=== PATIENT | male | born 1950 | race Caucasian/White ===

== ENCOUNTER → 2018-06-22 | Outpatient (CLI) | payer BC ==
[~2018-06-22] MED LIST: AMLO10TA4 PO; GABA300C10 PO; SERT50TA PO
[2018-06-22 14:47] LABS: BASOPHILS # (AUTO) 0.03 x10^3/uL (0-0.1); BASOPHILS % (AUTO) 0 % (0-1); EOSINOPHILS # (AUTO) 0.27 x10^3/uL (0-0.4); EOSINOPHILS % (AUTO) 3 % (1-7); LYMPHOCYTES # (AUTO) 2.44 x10^3/uL (1-3.4); LYMPHOCYTES % (AUTO) 23 % (22-44); MD NO; MEAN CORPUSCULAR HGB CONC 33.5 g/dL (33.2-36.2); MEAN CORPUSCULAR VOLUME 89.6 fL (81-97); MEAN PLATELET VOLUME 8.7 fL (7.4-10.4); MONOCYTES % (AUTO) 6 % (2-9); NEUTROPHILS # (AUTO) 7.42 x10^3/uL (1.8-6.8); NEUTROPHILS % (AUTO) 68 % (42-75); PLATELET COUNT 280 x10^3/uL (130-400); RED CELL DISTRIBUTION WIDTH 13.9 % (9.4-14.8)
[2018-06-22 14:49] LABS: MICROSCOPIC NOT IND
[2018-06-22 14:52] LABS: ALANINE AMINOTRANSFERASE 30 U/L (12-78); ALBUMIN 3.9 g/dL (3.4-5.0); ANION GAP 6 mmol/L (5-15); CALCIUM 8.9 mg/dL (8.5-10.1); CHLORIDE 111 mmol/L (98-107); CREATININE 0.93 mg/dL (0.7-1.3)
[2018-06-22 14:54] LABS: ALKALINE PHOSPHATASE 100 U/L (45-117); BILIRUBIN,TOTAL 0.7 mg/dL (0.2-1.0); TOTAL PROTEIN 8.1 g/dL (6.4-8.2)
[2018-06-22 15:10] LABS: CULTURE INDICATED? NO
[2018-06-22 15:51] LABS: INTERNATIONAL NORMALIZED RATIO 1.05 (0.93-1.1); PROTHROMBIN TIME 10.9 Seconds (9.6-11.5)
== END | disposition home or self-care (01) ==
LOC: STAR 13:28
PROVIDERS: ATTEND Orthopaedic Surgery Orthopaedic Surgery of the Spine
DX: Z01.818 Encounter for other preprocedural examination (principal); M48.02 Spinal stenosis, cervical region
CPT/HCPCS: 36415; 71046; 80053; 81003; 85025; 85610; 85730; 93005

== ENCOUNTER 2018-06-25 09:28 | Inpatient (IN) | payer MEDICARE, BC ==
[~2018-06-25] VITALS: Ht 180.3 cm; Wt 138.6 kg
[2018-06-25] MEDS ORDERED: ACET-1600 PO (10:13)
[2018-06-25] MEDS ORDERED: LACTATED RINGERS 1,000 ML IV SCH (10:17)
[2018-06-25] MEDS ORDERED: MIDAZOLAM 1 MG/ML, 2ML ONE (10:24)
[2018-06-25] MEDS ORDERED: FENTANYL PF 250 MCG/5ML ONE (10:24)
[2018-06-25] MEDS ORDERED: PROPOFOL 100 ML ONE (10:25)
[2018-06-25] MEDS ORDERED: VANCOMYCIN 1,000 MG ONE (11:04)
[2018-06-25] MEDS ORDERED: EPINEPHRINE 1 MG/ML, 1ML ONE (11:04)
[2018-06-25] MEDS ORDERED: BUPIVACAINE/PF-EPI 0.25% 1:200K ONE (11:04)
[2018-06-25] MEDS ORDERED: LIDOCAINE/PF 0.5% ,50ML ONE (11:04)
[2018-06-25] MEDS ORDERED: THROMBIN 5,000 UNIT VIAL TP ONE ×2 (11:04→13:00)
[2018-06-25] MEDS ORDERED: FAMOTIDINE 20 MG TABLET PO ONE (11:30)
[2018-06-25] MEDS ORDERED: ACETAMINOPHEN 500 MG TABLET PO ONE (11:30)
[2018-06-25] MEDS ORDERED: GABAPENTIN 300 MG CAPSULE PO ONE (11:30)
[2018-06-25] MEDS ORDERED: CEFAZOLIN 1,000 MG ONE ×3 (11:46→11:57)
[2018-06-25] MEDS ORDERED: PROPOFOL 50 ML ONE (14:09)
[2018-06-25] MEDS ORDERED: METHYLENE BLUE 10 MG/ML 10ML ONE (14:40)
[2018-06-25] MEDS ORDERED: FENTANYL PF 100 MCG/2ML ONE ×2 (14:44→16:17)
[2018-06-25] MEDS ORDERED: ONDANSETRON 2MG/ML, 2ML ONE (15:09)
[2018-06-25] MEDS ORDERED: DEXAMETHASONE 4 MG/ML, 1ML ONE ×3 (15:09)
[2018-06-25] MEDS ORDERED: PROPOFOL 10 MG/ML, 20ML ONE ×2 (15:09)
[2018-06-25] MEDS ORDERED: VANCOMYCIN 500 MG ONE (15:24)
[2018-06-25] MEDS ORDERED: PROMETHAZINE 12.5 MG SUPP PR PRN (15:30)
[2018-06-25] MEDS ORDERED: DIAZEPAM 5 MG/ML, 2ML IVPush PRN (15:30)
[2018-06-25] MEDS ORDERED: ONDANSETRON 2MG/ML, 2ML IV PRN ×2 (15:30→18:30)
[2018-06-25] MEDS ORDERED: hydrALAzine 20 MG/ML, 1ML IV PRN (15:30)
[2018-06-25] MEDS ORDERED: MEPERIDINE/PF 25MG/0.5ML IVPush PRN (15:30)
[2018-06-25] MEDS ORDERED: LABETALOL 5MG/ML, 20ML IV PRN (15:30)
[2018-06-25] MEDS: FENTANYL PF 100 MCG/2ML IV PRN ×2 (16:20→16:27)
[2018-06-25] MEDS ORDERED: HYDROmorphone 2 MG/ML, 1ML ONE ×2 (16:29→21:35)
[2018-06-25] MEDS: HYDROmorphone 1 MG/ML, 1ML IV PRN ×3 (16:36→17:02)
[2018-06-25] MEDS: HYDROmorphone 2MG TABLET PO PRN ×2 (18:15→19:58)
[2018-06-25] MEDS ORDERED: DIPHENHYDRAMINE 50 MG/ML, 1ML IVPush PRN (18:30)
[2018-06-25] MEDS ORDERED: MAGNESIUM HYDROXIDE 8%, 30ML UDC PO PRN (18:30)
[2018-06-25] MEDS ORDERED: DIPHENHYDRAMINE 50 MG/ML, 1ML IM PRN (18:30)
[2018-06-25] MEDS ORDERED: HYDROmorphone 2 MG/ML, 1ML IM PRN (18:30)
[2018-06-25] MEDS ORDERED: BISACODYL 10 MG SUPP PR PRN (18:30)
[2018-06-25] MEDS ORDERED: DIPHENHYDRAMINE 50 MG CAPSULE PO PRN (18:30)
[2018-06-25] MEDS ORDERED: PROMETHAZINE 25 MG/ML, 1ML IM PRN (18:30)
[2018-06-25] MEDS ORDERED: HYDROmorphone 2MG TABLET PO PRN (18:30)
[2018-06-25] MEDS: D5%-0.9% NACL+KCL 20MEQ 1,000 ML IV SCH (18:43)
[2018-06-25] MEDS: GABAPENTIN 300 MG CAPSULE PO SCH (19:58)
[2018-06-25] MEDS: CEFAZOLIN PMX 1GM/50ML 50 ML IVPB SCH (19:59)
[2018-06-25] MEDS: HYDROmorphone 1 MG/ML, 1ML IVPush PRN (21:42)
[2018-06-26] MEDS ORDERED: HYDROmorphone 2 MG/ML, 1ML ONE ×6 (00:46→15:40)
[2018-06-26] MEDS: HYDROmorphone 1 MG/ML, 1ML IVPush PRN ×6 (00:52→15:43)
[2018-06-26] MEDS: D5%-0.9% NACL+KCL 20MEQ 1,000 ML IV SCH ×3 (03:57→19:44)
[2018-06-26] MEDS: CEFAZOLIN PMX 1GM/50ML 50 ML IVPB SCH (03:57)
[2018-06-26 04:00] VITALS: BP 134/66
[2018-06-26] MEDS: SERTRALINE 50MG TABLET PO SCH (07:57)
[2018-06-26] MEDS: AMLODIPINE 5 MG TABLET PO SCH (07:57)
[2018-06-26] MEDS: SENNA/DOCUSATE TABLET PO SCH (07:58)
[2018-06-26] MEDS: GABAPENTIN 300 MG CAPSULE PO SCH ×2 (07:58→19:50)
[2018-06-26 12:33] VITALS: BP 114/72
[2018-06-26] MEDS: DEXAMETHASONE 4 MG/ML, 1ML IVPush SCH ×2 (13:26→19:42)
[2018-06-26 18:43] VITALS: BP 119/66
[2018-06-26] MEDS: HYDROmorphone 2MG TABLET PO PRN ×2 (18:49→22:32)
[2018-06-27] MEDS: HYDROmorphone 2MG TABLET PO PRN ×2 (02:10→13:25)
[2018-06-27] MEDS: DEXAMETHASONE 4 MG/ML, 1ML IVPush SCH (02:10)
[2018-06-27 04:25] VITALS: BP 136/77
[2018-06-27 06:59] VITALS: BP 138/84
[2018-06-27] MEDS: AMLODIPINE 5 MG TABLET PO SCH (09:52)
[2018-06-27] MEDS: GABAPENTIN 300 MG CAPSULE PO SCH (09:52)
[2018-06-27] MEDS: SENNA/DOCUSATE TABLET PO SCH (09:53)
[2018-06-27] MEDS: SERTRALINE 50MG TABLET PO SCH (09:53)
[2018-06-27] MEDS: D5%-0.9% NACL+KCL 20MEQ 1,000 ML IV SCH (10:30)
[2018-06-27 12:19] VITALS: BP 130/70
[2018-06-27] MEDS ORDERED: HYDR1LIQ6 PO (13:17)
== END 2018-06-27 14:15 | disposition home or self-care (01) | DRG 471 ==
LOC: ORIP 09:28 → CCU 16:19 → 4NOR 06-26 12:30
PROVIDERS: ADMIT Orthopaedic Surgery Orthopaedic Surgery of the Spine; ATTEND Orthopaedic Surgery Orthopaedic Surgery of the Spine
PROC: 0RG20A0 Fusion of 2 or more Cervical Vertebral Joints with Interbody Fusion Device, Anterior Approach, Anterior Column, Open Approach (ICD-10-PCS; 2018-06-25)
PROC: 0RR30JZ Replacement of Cervical Vertebral Disc with Synthetic Substitute, Open Approach (ICD-10-PCS; 2018-06-25)
PROC: 0RB30ZZ Excision of Cervical Vertebral Disc, Open Approach (ICD-10-PCS; principal; 2018-06-25 11:30)
DX: M48.02 Spinal stenosis, cervical region (principal); J96.21 Acute and chronic respiratory failure with hypoxia; Z68.41 Body mass index [BMI] 40.0-44.9, adult; G95.89 Other specified diseases of spinal cord; E66.01 Morbid (severe) obesity due to excess calories; Z88.5 Allergy status to narcotic agent; M75.101 Unspecified rotator cuff tear or rupture of right shoulder, not specified as traumatic
CPT/HCPCS: 72040; 87081; C1713; G0378; J0171; J0690; J1100; J1170; J2001; J2250; J2405; J2550; J2704; J3010; J3370; C1762; J3480; J7120; Q9968

== ENCOUNTER → 2018-07-01 | Outpatient (CLI) | payer BC ==
[~2018-07-01] MED LIST changes: +ACET-1600 PO; +HYDR1LIQ6 PO
== END | disposition home or self-care (01) ==
LOC: CFH 09:50
PROVIDERS: ATTEND Orthopaedic Surgery Orthopaedic Surgery of the Spine
DX: M79.669 Pain in unspecified lower leg (principal); M79.89 Other specified soft tissue disorders
CPT/HCPCS: 93970

== ENCOUNTER 2018-07-30 05:26 | Inpatient (IN) | payer MEDICARE, BC ==
[~2018-07-30] VITALS: Ht 180.3 cm; Wt 137.6 kg
[2018-07-30 06:09] VITALS: BP 125/88
[2018-07-30] MEDS ORDERED: LACTATED RINGERS 1,000 ML IV SCH (06:25)
[2018-07-30] MEDS ORDERED: BUPIVACAINE 0.25% ONE (06:45)
[2018-07-30] MEDS ORDERED: LIDOCAINE/PF 0.5% ,50ML ONE (06:45)
[2018-07-30] MEDS ORDERED: THROMBIN 5,000 UNIT VIAL TP ONE ×3 (06:46→09:34)
[2018-07-30] MEDS ORDERED: EPINEPHRINE 1 MG/ML, 1ML ONE (06:46)
[2018-07-30] MEDS ORDERED: VANCOMYCIN 1,000 MG ONE (06:46)
[2018-07-30] MEDS ORDERED: FENTANYL PF 250 MCG/5ML ONE ×2 (07:11→09:01)
[2018-07-30] MEDS ORDERED: MIDAZOLAM 1 MG/ML, 2ML ONE (07:11)
[2018-07-30] MEDS ORDERED: ACETAMINOPHEN 500 MG TABLET ONE (07:18)
[2018-07-30] MEDS ORDERED: GABAPENTIN 300 MG CAPSULE ONE (07:19)
[2018-07-30] MEDS ORDERED: ONDANSETRON 2MG/ML, 2ML ONE (07:39)
[2018-07-30] MEDS ORDERED: SUCCINYLCHOLINE 20 MG/ML, 10ML ONE (07:39)
[2018-07-30] MEDS ORDERED: PHENYLEPHRINE 10 MG/ML ONE (07:39)
[2018-07-30] MEDS ORDERED: CEFAZOLIN 1,000 MG ONE ×2 (07:39)
[2018-07-30] MEDS ORDERED: PROPOFOL 10 MG/ML, 50ML ONE (07:39)
[2018-07-30] MEDS ORDERED: DEXAMETHASONE 4 MG/ML, 5ML ONE (07:39)
[2018-07-30] MEDS ORDERED: PROPOFOL 10 MG/ML, 20ML ONE ×2 (07:39)
[2018-07-30] MEDS ORDERED: ALBUTEROL SULFATE 2.5 MG/3 ML NPPB PRN (10:30)
[2018-07-30] MEDS ORDERED: HYDROmorphone 2 MG/ML, 1ML IV PRN (10:30)
[2018-07-30] MEDS ORDERED: ACETAMINOPHEN 325 MG TABLET PO PRN (10:30)
[2018-07-30] MEDS ORDERED: HALOPERIDOL 5 MG/ML IV PRN (10:30)
[2018-07-30] MEDS ORDERED: KETOROLAC 30 MG/1 ML IV PRN (10:30)
[2018-07-30] MEDS ORDERED: LABETALOL 5MG/ML, 20ML IV PRN (10:30)
[2018-07-30] MEDS ORDERED: OXYcodone 5 MG/5 ML ORAL.SOL UDC PO PRN (10:30)
[2018-07-30] MEDS ORDERED: LORazepam 2 MG/ML, 1ML IVPush PRN (10:30)
[2018-07-30] MEDS ORDERED: FENTANYL PF 100 MCG/2ML IV PRN (10:30)
[2018-07-30] MEDS ORDERED: hydrALAzine 20 MG/ML, 1ML IV PRN (10:30)
[2018-07-30] MEDS ORDERED: VANCOMYCIN 500 MG ONE (10:42)
[2018-07-30] MEDS ORDERED: LABETALOL 5MG/ML, 20ML ONE (13:23)
[2018-07-30] MEDS ORDERED: FENTANYL PF 100 MCG/2ML ONE (13:31)
[2018-07-30] MEDS ORDERED: HYDROmorphone 2 MG/ML, 1ML ONE (13:31)
[2018-07-30] MEDS ORDERED: MAGNESIUM HYDROXIDE 8%, 30ML UDC PO PRN (15:00)
[2018-07-30] MEDS ORDERED: HYDROmorphone PCA 30 MG/30 ML IV PRN (15:00)
[2018-07-30] MEDS ORDERED: PROMETHAZINE 25 MG/ML, 1ML IM PRN (15:00)
[2018-07-30] MEDS ORDERED: BISACODYL 10 MG SUPP PR PRN (15:00)
[2018-07-30] MEDS: CEFAZOLIN PMX 1GM/50ML 50 ML IVPB SCH ×2 (16:37→23:42)
[2018-07-30] MEDS: D5%-0.9% NACL+KCL 20MEQ 1,000 ML IV SCH (16:38)
[2018-07-30 19:38] VITALS: BP 147/62
[2018-07-31 01:16] VITALS: BP 119/72
[2018-07-31] MEDS: D5%-0.9% NACL+KCL 20MEQ 1,000 ML IV SCH ×4 (02:37→22:37)
[2018-07-31 07:05] VITALS: BP 109/71
[2018-07-31] MEDS: SENNA/DOCUSATE TABLET PO SCH (08:34)
[2018-07-31] MEDS: AMLODIPINE 10 MG TAB PO SCH (08:34)
[2018-07-31] MEDS: SERTRALINE 50MG TABLET PO SCH (11:42)
[2018-07-31] MEDS: HYDROmorphone 2MG TABLET PO PRN ×2 (11:49→18:03)
[2018-07-31] MEDS: ONDANSETRON 2MG/ML, 2ML IV PRN ×2 (12:05→18:06)
[2018-07-31 14:10] VITALS: BP 126/78
[2018-07-31] MEDS ORDERED: GABAPENTIN 300 MG CAPSULE ONE (16:00)
[2018-07-31 18:36] VITALS: BP 105/64
[2018-07-31] MEDS ORDERED: morphine SULFATE 10 MG/ML, 1ML IVPush PRN (21:30)
[2018-07-31] MEDS: DIAZEPAM 5 MG TABLET PO PRN (22:12)
[2018-08-01] MEDS: ONDANSETRON 2MG/ML, 2ML IV PRN ×2 (00:22→07:58)
[2018-08-01] MEDS: HYDROmorphone 2MG TABLET PO PRN ×2 (00:23→07:58)
[2018-08-01 03:19] VITALS: BP 115/66
[2018-08-01] MEDS: DIAZEPAM 5 MG TABLET PO PRN ×2 (05:30→11:35)
[2018-08-01 07:14] VITALS: BP 122/73
[2018-08-01] MEDS: D5%-0.9% NACL+KCL 20MEQ 1,000 ML IV SCH (07:21)
[2018-08-01] MEDS: SERTRALINE 50MG TABLET PO SCH (07:50)
[2018-08-01] MEDS: SENNA/DOCUSATE TABLET PO SCH (07:50)
[2018-08-01] MEDS: AMLODIPINE 10 MG TAB PO SCH (07:50)
[2018-08-01 11:35] VITALS: BP 129/77
[2018-08-01] MEDS ORDERED: DIAZ5TAB4 PO (11:41)
== END 2018-08-01 12:15 | disposition home or self-care (01) | DRG 472 ==
LOC: ORIP 05:26 → 4NOR 14:46
PROVIDERS: ADMIT Orthopaedic Surgery Orthopaedic Surgery of the Spine; ATTEND Orthopaedic Surgery Orthopaedic Surgery of the Spine
PROC: 0RG4071 Fusion of Cervicothoracic Vertebral Joint with Autologous Tissue Substitute, Posterior Approach, Posterior Column, Open Approach (ICD-10-PCS; 2018-07-30)
PROC: 4A11X4G Monitoring of Peripheral Nervous Electrical Activity, Intraoperative, External Approach (ICD-10-PCS; 2018-07-30)
PROC: 00NW0ZZ Release Cervical Spinal Cord, Open Approach (ICD-10-PCS; 2018-07-30)
PROC: 00NX0ZZ Release Thoracic Spinal Cord, Open Approach (ICD-10-PCS; 2018-07-30)
PROC: 0RG2071 Fusion of 2 or more Cervical Vertebral Joints with Autologous Tissue Substitute, Posterior Approach, Posterior Column, Open Approach (ICD-10-PCS; principal; 2018-07-30 07:30)
DX: M48.02 Spinal stenosis, cervical region (principal); M47.12 Other spondylosis with myelopathy, cervical region; M48.03 Spinal stenosis, cervicothoracic region; I10 Essential (primary) hypertension; Z88.5 Allergy status to narcotic agent; Z88.8 Allergy status to other drugs, medicaments and biological substances
CPT/HCPCS: 72040; C1713; G0378; J0171; J0690; J1100; J1170; J2001; J2250; J2270; J2405; J2704; J3010; J3370; J3490; J0330; J2370; J3480; J7120